=== PATIENT | female | born 1960 | race Caucasian/White ===

== ENCOUNTER → 2016-10-22 | Outpatient (CLI) | payer BC ==
[~2016-10-22] MED LIST: BENADRYL-DPS25 MG PO; CEPACOL SORE T1 EACH PO; CLARITIN DPS10 MG PO; COMPAZINE10 MG PO; DULCOLAX-DPS5 MG PO; FLEXERIL-DPS10 MG PO; FLONASE 0.05% D16 GM NS; HYDROCHLOROTHIA25 MG PO; HYDRODIURIL-DPS25 MG PO; LACRI-LUBE3.5 GM OU; MAALOX DPS30 ML PO; MILK OF MAGNESI10 ML PO; MIRALAX DPS17 GM PO; MUCINEX600 MG PO; OXY IR DPS5 MG PO; POLYETHYLENE GL17 GM PO; SENOKOT S1 TAB PO; SURFAK DPS240 MG PO; SYSTANE 0.3-0.440 ML OU; SYSTANE GEL10 GM OU; TUMS DPS500 MG PO; TYLENOL DPS325 MG PO; ULTRAM DPS50 MG PO; VIIBRYD40 MG PO; VITAMIN C1000 MG PO; VITAMIN D35000 UNI1 PO; WP THYROID16.25 MG PO; XARELTO10 MG PO
== END | disposition home or self-care (01) ==
LOC: PTH.S 08:59
DX: Z01.812 Encounter for preprocedural laboratory examination (principal)

== ENCOUNTER 2016-11-03 06:08 | Inpatient (IN) | payer BC ==
[~2016-11-03] VITALS: Ht 165.1 cm; Wt 105.3 kg
--- NOTE | ~2016-11-03 | HP ---
ADMIT: 11/03/2016 RM/LOC: [facility] MR#: [id number] [address] [address] ARTHUR VICTOR [address] [place] [address] Pre-OP History and Physical SEX: F AGE: 56 : 1960 DATE OF SERVICE: CHIEF COMPLAINT: Left knee pain. HISTORY OF PRESENT ILLNESS: The patient is a 56-year-old female, longstanding history of knee pain. Her right knee is doing well. She had the right knee replaced about a couple of months ago. Left knee is not quite bothersome, wants to proceed with the surgery. PAST MEDICAL HISTORY: Include a history DVT, fibromyalgia, depression. MEDICATIONS: Include: 1. Mucinex. 2. Claritin. 3. Vitamins. 4. Aspirin. 5. Flonase. 6. Celebrex. ALLERGIES: NONE. SOCIAL HISTORY: Denies significant tobacco or alcohol use. REVIEW OF SYSTEMS: Negative. PHYSICAL EXAMINATION: Healthy-appearing female, in no acute distress, walks with antalgic gait on the left lower extremity. She has a varus deformity to the knee, crepitus of the medial joint line. Range of motion 0-110 degrees. Leg is neurovascularly intact. DIAGNOSTIC DATA: X-rays AP, lateral, PA flexion view shows advanced left knee arthritis. No joint space medially. IMPRESSION: Advanced left knee degenerative joint disease. PLAN: We talked about different options, failed conservative care. Plan on doing a left Attune total knee arthroplasty. She is aware of the risks, benefits, and options and agreed to proceed. She has been seen and cleared from a medical standpoint. Pawan Kahn MD/ evan JOB #: [id number] CC: Pawan Kahn, Attending Physician UNKNOWN, Family Physician
--- NOTE | ~2016-11-03 | OR ---
ADMIT: 11/03/2016 RM/LOC: [facility] MR#: [id number] [facility]#: [id number] [address] ARTHUR VICTOR [address] [place] [address] Operative/Delivery Room Report SEX: F AGE: 56 : 1960 SURGERY DATE: 11/03/2016 SURGEON: Pawan Kahn MD COMMUNICATIONS ANALYST: 1. BRITNI Vaughn. 2. Jules Krause PA-C. PREOPERATIVE DIAGNOSIS: Left knee degenerative joint disease. POSTOPERATIVE DIAGNOSIS: Left knee degenerative joint disease. OPERATION: Left total knee arthroplasty. ANESTHESIA: COMPLICATIONS: None. ESTIMATED BLOOD LOSS: 100 mL. TOTAL TOURNIQUET TIME: 38 minutes. COMPONENTS: 1. A size 6 Attune femoral component. 2. A 6 Attune tibial component. 3. A 38 mm oval patellar button. 4. A 10 mm posterior stabilized insert. 5. Dalila speed set cement. DESCRIPTION OF OPERATION: The patient was taken to the operating room and the correct extremity was identified. The patient received a spinal anesthetic. The left lower extremity was prepped and draped in a standard fashion. The leg was exsanguinated and tourniquet inflated. An anterior incision was made and dissection was carried through the subcutaneous tissue. A medial parapatellar arthrotomy was performed. An appropriate medial release was performed. The patella was subluxed laterally. The infrapatellar fat pad was partially excised for exposure. At that point, the distal femur was opened up with a drill. We cut 10 mm off the distal femur in 5 degrees of valgus using an intramedullary guide. No Hemovac drain was used. We then cut the tibia perpendicular to its long axis taking it flush with the affected side with an extramedullary guide. We then sized the femur to a size 6 and pinned this in appropriate external rotation aligning it with the epicondylar axis. We then made anterior, posterior, and chamfer cuts with the 4-in-1 cutting block. We opened up the joint space and removed the remaining posterior osteophytes, meniscus, and PCL ligament. We made our box cut centralizing the femoral component. The tibia was subluxed anteriorly, fit for a size 6 modular tibial tray, punched and drilled in appropriate external rotation. We then removed the remaining tibial osteophytes. We then cut the patella perpendicular to its long axis taking it flush with the lateral facet and fit it for a 38 mm oval ADMIT: 11/03/2016 RM/LOC: [facility] MR#: [id number] [address] ARTHUR VICTOR [address] [place] [address] Operative/Delivery Room Report SEX: F AGE: 56 : 1960 patellar button restoring patellar height. We then extended the knee and opened the joint space to obtain posterior hemostasis and perform a posterior Exparel block. We then put in trial components with a 10 mm insert. At that point, we had full extension, full flexion, patella tracked centrally and no lateral release was required. The knee was also stable to varus and valgus stress testing. All trial components were removed and all the bony surfaces were Waterpik'd clean. We then cemented the tibia, femur, and patella in a standard fashion, put in the trial 10 mm insert and held the knee in extension. While the cement hardened, we completed our intra-articular Exparel block. Once the cement was hard, we deflated the tourniquet, obtained hemostasis, irrigated out the wound thoroughly, removed the trial insert and put in the real insert. The knee was again found to be stable with full range of motion. No Hemovac drain was used. At that point, the extensor mechanism was closed with an interrupted 0-Vicryl suture with the knee in flexion. The subcutaneous tissue was closed 2-0 Vicryl and raheel were placed in the skin. Mepilex Border dressing was then applied. The patient was taken to the recovery room in stable condition with no complications. Pawan Kahn MD/ evan JOB #: [id number] CC: Pawan Kahn, Attending Physician Franklin Montero, Family Physician
[~2016-11-03 06:08] MED LIST changes: -BENADRYL-DPS25 MG PO; -CEPACOL SORE T1 EACH PO; -COMPAZINE10 MG PO; -DULCOLAX-DPS5 MG PO; -HYDROCHLOROTHIA25 MG PO; -LACRI-LUBE3.5 GM OU; -MAALOX DPS30 ML PO; -POLYETHYLENE GL17 GM PO; -TUMS DPS500 MG PO
[2016-11-06] MEDS ORDERED: POLYETHYLENE GL17 GM PO (18:53)
[2016-11-06] MEDS ORDERED: WP THYROID16.25 MG PO (18:53)
[2016-11-06] MEDS ORDERED: VIIBRYD40 MG PO (18:53)
[2016-11-06] MEDS ORDERED: ULTRAM DPS50 MG PO (18:53)
[2016-11-06] MEDS ORDERED: CLARITIN DPS10 MG PO (18:54)
[2016-11-06] MEDS ORDERED: SENOKOT S1 TAB PO (18:54)
[2016-11-06] MEDS ORDERED: TYLENOL DPS325 MG PO (18:54)
[2016-11-06] MEDS ORDERED: HYDROCHLOROTHIA25 MG PO (18:54)
[2016-11-06] MEDS ORDERED: BENADRYL-DPS25 MG PO (18:55)
[2016-11-06] MEDS ORDERED: MUCINEX600 MG PO (18:55)
[2016-11-06] MEDS ORDERED: XARELTO10 MG PO (18:55)
[2016-11-06] MEDS ORDERED: VITAMIN D35000 UNI1 PO (18:55)
[2016-11-06] MEDS ORDERED: FLONASE 0.05% D16 GM NS (18:56)
[2016-11-06] MEDS ORDERED: CEPACOL SORE T1 EACH PO (18:56)
[2016-11-06] MEDS ORDERED: COMPAZINE10 MG PO (18:56)
[2016-11-06] MEDS ORDERED: MAALOX DPS30 ML PO (18:58)
[2016-11-06] MEDS ORDERED: LACRI-LUBE3.5 GM OU (18:58)
[2016-11-06] MEDS ORDERED: FLEXERIL-DPS10 MG PO (18:58)
[2016-11-06] MEDS ORDERED: DULCOLAX-DPS5 MG PO (18:58)
[2016-11-06] MEDS ORDERED: OXY IR DPS5 MG PO (18:59)
[2016-11-06] MEDS ORDERED: TUMS DPS500 MG PO (18:59)
[2016-11-06] MEDS ORDERED: MILK OF MAGNESI10 ML PO (18:59)
[2016-11-06] MEDS ORDERED: SURFAK DPS240 MG PO (18:59)
--- NOTE | 2016-11-09 08:28 | CO ---
ADMIT: 11/03/2016 RM/LOC: [facility] MR#: [id number] [address] [address] ARTHUR VICTOR [address] [place], [place] [address] Consultation Report SEX: F AGE: 56 : 1960 DATE OF CONSULTATION: 10/22/2016 ATTENDING PHYSICIAN: Pawan Kahn CONSULTING PHYSICIAN: Franklin Montero, DO DATE OF PLANNED PROCEDURE: 11/03/2016 HISTORY: This is a pleasant 56-year-old female patient of [facility], who underwent a right knee replacement back in July and is now being prepared to have her left knee surgery performed. She did not have any significant complications last time through. She has been, however, in the interval, diagnosed with obstructive sleep apnea but has yet to receive services from the CPAP provider company and is not yet on therapy. She also has a history of rhinitis, chronic sinusitis, and depression, which are under stable and improved control. She has a history of DVT, hypothyroidism, obesity, chronic edema, and seasonal allergies. She has history of B12 deficiency. Surgically, she has had bariatric surgery with vitamin D and B12 deficiencies subsequent to that. She has had a and hysterectomy. Her gastric bypass was performed in 2008. She has had an abdominal hernia repair in 2010. SOCIAL HISTORY: She is , does not smoke. She does have about a half [id number] history of smoking in the past. She does rarely use alcohol. FAMILY HISTORY: Daughter, Charcot Lesa Tooth syndrome; father, atrial fibrillation and hypertension. REVIEW OF SYSTEMS: She denies any chest pain, shortness of breath, cough, sputum production, fevers, chills, nausea, vomiting, diarrhea, constipation, hematemesis, hematochezia, melena, dysuria, or edema. MEDICATIONS: 1. Viibryd. 2. She usually takes Celebrex but this is on hold in preparation for surgery. 3. She takes thyroid supplement. 4. Tramadol. 5. Hydrochlorothiazide. 6. Lotrisone. 7. Aspirin, which is being placed on hold. 8. Claritin. 9. Mucinex. 10.Vitamin D3. 11.Vitamin C. 12.[place]-3. 13.Vitamin E. 14.Potassium. 15.Flonase. 16.Refresh eye drops. ADMIT: 11/03/2016 RM/LOC: [facility] MR#: [id number] [address] [address] ARTHUR VICTOR [address] [place] [address] Consultation Report SEX: F AGE: 56 : 1960 For specifics of dosing, please refer to admission orders. PHYSICAL EXAMINATION: GENERAL: She is pleasant, alert, and well kept. HEENT: Ear, nose, and throat. Normal no JVD or bruit. HEART: Regular. LUNGS: Clear. ABDOMEN: Soft and nontender. No significant peripheral edema. Her right knee incision has healed nicely. LABORATORY DATA: Her CBC and BMP are essentially within normal range. An EKG from previous preparatory evaluation was normal. IMPRESSION: Generally healthy 56-year-old female patient with degenerative joint disease, obstructive sleep apnea which is yet to receive adequate treatment. PLAN: Since she has a history of DVT, we will plan to use Xarelto DVT prophylaxis and will try to arrange for CPAP therapy to be delivered during her hospital stay. Franklin Montero DO/ evan JOB #: [id number] CC: Pawan Kahn, Attending Physician UNKNOWN, Family Physician
--- NOTE | 2016-11-14 08:30 | DS ---
ADMIT: 11/03/2016 RM/LOC: [facility] MR#: [id number] [facility] [id number] [address] [facility] [address] [place] [address] ARTHUR VICTOR [address] [place] [address] General Discharge Summary SEX: F AGE: 56 : 1960 ADMISSION DATE: 11/03/2016 DISCHARGE DATE: 11/05/2016 REASON FOR ADMISSION: Elective left total knee arthroplasty after failing conservative care. PREOPERATIVE DIAGNOSIS: Left knee degenerative joint disease. POSTOPERATIVE DIAGNOSIS: Left knee degenerative joint disease. PROCEDURE PERFORMED: Left total knee arthroplasty. SURGEON: Pawan Kahn MD. ASSISTANTS: 1. Elena Miranda PA-C. 2. Jules Krause PA-C. ANESTHESIA: Spinal. COMPLICATIONS: None. ESTIMATED BLOOD LOSS: 100 mL. ACTIVE MEDICAL PROBLEMS: History of DVT, hypothyroidism, obesity, chronic edema, and seasonal allergies. HOSPITAL COURSE: The patient was admitted on 11/03/2016, for elective left total knee arthroplasty done successfully by Dr. Kahn without any complications. The patient tolerated the procedure well. Postoperatively, she did well with pain control with the use of intraoperative Exparel and postoperative oral analgesics. As expected, she did suffer from some mild acute blood loss anemia, her hemoglobin dropped to 9.0 on 11/05/2016, but she remained hemodynamically stable and did not require blood transfusion. By postoperative day #2, she was doing well with physical therapy, she was safe and stable and ready for discharge with plans for outpatient physical therapy. DISCHARGE MEDICATIONS: 1. Viibryd 40 mg every morning. 2. WP Thyroid 16.25 mg in the morning. 3. MiraLax 17 g everyday. 4. Tramadol 50 mg every 6 hours as needed. 5. Hydrochlorothiazide 25 mg daily as needed. 6. Tylenol 325 mg two tablets every 6 hours as needed. 7. Senokot 2 tablets twice daily. 8. Claritin 10 mg every morning. 9. Mucinex 300 mg every morning. 10.Vitamin D3, 5000 units every morning. 11.Xarelto 10 mg everyday for 10 days. ADMIT: 11/03/2016 RM/LOC: 518 [facility] MR#: [id number] [address] [address] ARTHUR VICTOR [address] [place] [address] General Discharge Summary SEX: F AGE: 56 : 1960 12.Benadryl 25 mg every 6 hours as needed. 13.Cepacol 1 lozenge every hour as needed. 14.Compazine 10 mg every 6 hours as needed. 15.Flonase 50 mcg one spray twice daily in both nostrils. 16.Refresh eye drops one drop every morning and noon in both eyes. 17.Dulcolax DPS 5 mg twice daily as needed. 18.Flexeril 10 mg three times daily as needed. 19.Maalox 30 mL every 6 hours as needed. 20.Milk of magnesia 10 mL daily as needed. 21.Oxycodone IR 5 mg one to two tablets every 4 hours as needed. 22.Surfak 240 mg twice daily as needed. 23.Tums 500 mg every 2 hours as needed. DISCHARGE INSTRUCTIONS: The patient was discharged home with plans for outpatient physical therapy per total knee arthroplasty protocol. Follow up in the Orthopedic office in 2 weeks for wound check, in 6 weeks with x-rays. Follow up with primary care as directed. BRITNI Vaughn / Pawan Kahn MD / homerol JOB #: [id number] CC: Pawan Kahn MD, Attending Physician Franklin Montero DO, Family Physician
== END 2016-11-05 15:26 | disposition home or self-care (01) | DRG 470 ==
LOC: 5MS 06:08 → WOR 06:08 → 5MS 11:20
PROVIDERS: ADMIT Orthopaedic Surgery
PROC: 0SRD0J9 Replacement of Left Knee Joint with Synthetic Substitute, Cemented, Open Approach (ICD-10-PCS; principal; 2016-11-03)
DX: M17.12 Unilateral primary osteoarthritis, left knee (principal); D62 Acute posthemorrhagic anemia; E53.8 Deficiency of other specified B group vitamins; F32.9 Major depressive disorder, single episode, unspecified; M79.7 Fibromyalgia; G47.33 Obstructive sleep apnea (adult) (pediatric); J32.9 Chronic sinusitis, unspecified; E03.9 Hypothyroidism, unspecified; E66.9 Obesity, unspecified; Z98.0 Intestinal bypass and anastomosis status; Z98.84 Bariatric surgery status; Z87.891 Personal history of nicotine dependence; Z86.718 Personal history of other venous thrombosis and embolism; Z96.651 Presence of right artificial knee joint; Z79.82 Long term (current) use of aspirin; Z68.36 Body mass index [BMI] 36.0-36.9, adult